=== PATIENT | female | born 1990 | race Hispanic/Latino ===

== ENCOUNTER 2018-06-27 18:43 | Inpatient (IN) | payer OTHER ==
[~2018-06-27] VITALS: Ht 160 cm; Wt 78.9 kg
[2018-06-27] MEDS ORDERED: LACTATED RINGERS 1000ML 1,000 ML IV PRN (19:34)
[2018-06-27 19:37] VITALS: BP 117/68
[2018-06-27 19:56] LABS: APPEARANCE,URINE SL CLOUDY (CLEAR); BILIRUBIN,URINE NEGATIVE (NEGATIVE); COLOR,URINE YELLOW (YELLOW); GLUCOSE, URINE (UA) 250 mg/dL (NEGATIVE); KETONES,URINE 5 mg/dL (NEGATIVE); LEUKOCYTE ESTERASE ,URINE NEGATIVE (NEGATIVE); NITRATE,URINE NEGATIVE (NEGATIVE); OCCULT BLOOD,URINE NEGATIVE (NEGATIVE); PROTEIN,URINE TRACE (NEGATIVE)
[2018-06-27 20:08] LABS: BACTERIA,URINE Few /HPF (None Seen); MUCUS,URINE Many LPF (None Seen); RBC,URINE None Seen /HPF (0-1)
[2018-06-27 21:38] LABS: HEMATOCRIT 33.6 % (36-48); MEAN CORPUSCULAR HEMOGLOBIN 26.5 pg (27.0-33.0); MEAN CORPUSCULAR VOLUME 80.3 fL (79-99); PLATELET COUNT (AUTO) 148 K/uL (130-400); RED BLOOD CELL COUNT(AUTO) 4.18 MIL/uL (4.00-5.50); RED CELL DISTRIBUTION WIDTH 14.4 % (11.0-15.5); WHITE BLOOD COUNT (AUTO) 5.2 K/uL (4.8-10.8)
[2018-06-27] MEDS ORDERED: PREN1TAB80 PO (22:39)
[2018-06-27] MEDS ORDERED: GLYB5TAB8 PO (22:39)
[2018-06-28] MEDS ORDERED: OXYTOCIN 10 USP UNITS/ML ONE ×2 (04:23→11:17)
[2018-06-28] MEDS ORDERED: LACTATED RINGERS 1000ML 1,000 ML IV ONE (04:23)
[2018-06-28] MEDS ORDERED: OXYTOCIN 10 USP UNITS/ML 20 UNIT in LACTATED RINGERS 1000ML 1,000 ML IV SCH (05:00)
[2018-06-28] MEDS ORDERED: MEPERIDINE-PF 50 MG/ML SYG IVP SCH (10:15)
[2018-06-28] MEDS ORDERED: PROMETHAZINE HCL 25 MG/ML 1ML AMPULE IM SCH (10:15)
[2018-06-28] MEDS ORDERED: LANOLIN 30GM OINTMENT TP PRN (11:30)
[2018-06-28] MEDS ORDERED: WITCH HAZEL 1 PAD TP PRN (11:30)
[2018-06-28] MEDS ORDERED: HYDROCODONE/ACETAMINOPHEN 5/325 MG TAB PO PRN (11:30)
[2018-06-28] MEDS ORDERED: ACETAMINOPHEN-CODEINE 300/30MG TAB PO PRN (11:30)
[2018-06-28] MEDS ORDERED: BENZOCAINE/LANOLIN/ALOE VERA 60 ML AEROSOL TP PRN (11:30)
[2018-06-28] MEDS ORDERED: DIPH,PERTUSS(ACELL),TET VAC/PF 0.5 ML VIAL IM PRN (11:30)
[2018-06-28] MEDS ORDERED: MEASLES/MUMPS/RUBELLA VACCINE, LIVE 0.5 ML/VIAL SQ PRN (11:30)
[2018-06-28] MEDS ORDERED: ACETAMINOPHEN 325 MG TAB PO PRN (11:30)
[2018-06-28] MEDS: IBUPROFEN 800 MG TAB PO PRN ×2 (11:59→21:13)
[2018-06-28 20:34] VITALS: BP 109/60
[2018-06-28] MEDS: DOCUSATE SODIUM 100 MG CAP PO SCH (21:12)
[2018-06-29 00:32] VITALS: BP 108/73
[2018-06-29 03:21] VITALS: BP 98/59
[2018-06-29 05:33] LABS: MEAN CORPUSCULAR HEMOGLOBIN 26.1 pg (27.0-33.0); MEAN CORPUSCULAR HGB CONC 32.4 g/dL (32.0-36.0); MEAN CORPUSCULAR VOLUME 80.8 fL (79-99); PLATELET COUNT (AUTO) 125 K/uL (130-400); RED BLOOD CELL COUNT(AUTO) 3.47 MIL/uL (4.00-5.50); RED CELL DISTRIBUTION WIDTH 14.4 % (11.0-15.5); WHITE BLOOD COUNT (AUTO) 6.3 K/uL (4.8-10.8)
[2018-06-29 08:09] VITALS: BP 107/73
[2018-06-29] MEDS: DOCUSATE SODIUM 100 MG CAP PO SCH (08:37)
[2018-06-29] MEDS: IBUPROFEN 800 MG TAB PO PRN (08:38)
[2018-06-29 09:18] LABS: HEPATITIS Bs ANTIGEN SCREEN P Negative (Negative)
[2018-06-29 11:47] VITALS: BP 109/63
== END 2018-06-29 13:50 | disposition home or self-care (01) | DRG 807 ==
LOC: LDH 18:43 → WSH 06-28 19:00
PROVIDERS: ADMIT Obstetrics & Gynecology; ATTEND Obstetrics & Gynecology
PROC: 10E0XZZ Delivery of Products of Conception, External Approach (ICD-10-PCS; principal; 2018-06-28)
PROC: 3E0234Z Introduction of Serum, Toxoid and Vaccine into Muscle, Percutaneous Approach (ICD-10-PCS; 2018-06-28)
PROC: 3E0134Z Introduction of Serum, Toxoid and Vaccine into Subcutaneous Tissue, Percutaneous Approach (ICD-10-PCS; 2018-06-28)
PROC: 3E02340 Introduction of Influenza Vaccine into Muscle, Percutaneous Approach (ICD-10-PCS; 2018-06-28)
DX: O80 Encounter for full-term uncomplicated delivery (principal); Z37.0 Single live birth; Z23 Encounter for immunization; Z3A.38 38 weeks gestation of pregnancy; Z86.32 Personal history of gestational diabetes
CPT/HCPCS: 36415; 81001; 82947; 85027; 86592; 86850; 86900; 86901; 87340; 90715; A4351; A4606; J2175; J2550; J2590; J7120; Q2038